=== PATIENT | male | born 1970 | race Caucasian/White ===

== ENCOUNTER 2017-12-25 08:40 | Inpatient (IN) | payer OTHER ==
[~2017-12-25] VITALS: Ht 180.3 cm; Wt 83.9 kg
[2017-12-27] MEDS ORDERED: CIPRO500 MG PO (08:55)
[2017-12-27] MEDS ORDERED: ULTRACET PO (08:55)
== END 2017-12-27 10:12 | disposition home or self-care (01) | DRG 661 ==
LOC: CIR.AMB 08:40 → SURH 15:42 → O/R 15:42 → SURH 16:29
PROVIDERS: Urology
PROC: 0TP98DZ Removal of Intraluminal Device from Ureter, Via Natural or Artificial Opening Endoscopic (ICD-10-PCS; 2017-12-25)
PROC: 0T9130Z Drainage of Left Kidney with Drainage Device, Percutaneous Approach (ICD-10-PCS; 2017-12-25)
PROC: 0TC18ZZ Extirpation of Matter from Left Kidney, Via Natural or Artificial Opening Endoscopic (ICD-10-PCS; principal; 2017-12-25 08:45)
DX: N20.0 Calculus of kidney (principal)